=== PATIENT | male | born 1975 | race Caucasian/White ===

== ENCOUNTER 2024-01-28 14:36 | Emergency (ER) | payer MEDICAID, MEDICARE ==
[~2024-01-28] VITALS: Ht 182.9 cm; Wt 79.0 kg
[~2024-01-28 14:36] MED LIST: /THIA10TA; BENI20TA11; BUSP15TA; FOLI1TAB; HUMULIN703 SC; HYDROXYZINE; INSULANT; LISI20TA5; MAGN500T2; MAGNESIUM CHLORIDE; NICO7DIS4; NOVOLOG100 MG/ML; SERO1TAB3; ZOLO100T
[2024-01-28 14:37] VITALS: BP 168/70; TEMP 98.2; O2SAT 98
[2024-01-28] MEDS ORDERED: ADDE20CA3 PO (14:49)
[2024-01-28] MEDS ORDERED: CLON1TAB17 PO (14:50)
[2024-01-28] MEDS ORDERED: TRAZ-257 PO (14:51)
[2024-01-28] MEDS ORDERED: LANTINJ4 SC ×2 (15:32)
== END 2024-01-28 15:33 | disposition home or self-care (01) ==
LOC: M ED 14:36
DX: Z76.0 Encounter for issue of repeat prescription (principal); E11.9 Type 2 diabetes mellitus without complications; I10 Essential (primary) hypertension; Z79.4 Long term (current) use of insulin; Z79.899 Other long term (current) drug therapy; Z88.0 Allergy status to penicillin; Z91.018 Allergy to other foods

== ENCOUNTER 2025-06-12 15:38 | Emergency (ER) | payer SELFPAY ==
[~2025-06-12] VITALS: Ht 182.9 cm; Wt 70.0 kg
[~2025-06-12 15:38] MED LIST changes: +ADDE20CA3 PO; +CLON1TAB17 PO; +INSUH10VL SUBQ; +LANTINJ4 SC; +LANTINJ4 SUBQ; +TRAZ-257 PO
[2025-06-12 17:23] LABS: VENOUS BASE EXCESS 1.6 (-2.0-2.0); VENOUS HCO3 27.9 MMOL/L (23.0-27.0); VENOUS O2 SATURATION 58.1 % (60.0-80.0); VENOUS PARTIAL PRESSURE CO2 49.1 mmHg (38.0-50.0); VENOUS PARTIAL PRESSURE O2 28.4 mmHg (30.0-50.0); VENOUS PH 7.372 UNITS (7.330-7.430); VENOUS STANDARD HCO3 24.7 MMOL/L; VENOUS TOTAL CO2 29.4 MMOL/L (24.0-28.0)
[2025-06-12 17:28] LABS: BASO # 0.1 10^3/uL (0.0-0.2); BASO % 1.3 % (0.0-1.0); EOS # 0.2 10^3/uL (0.0-0.5); EOS % 2.6 % (0.0-3.0); KETONE, URINE AUTO RFX 2+ mg/dL (NEGATIVE); LEUKOCYTE ESTERASE UR AUTO RFX NEGATIVE (NEGATIVE); LYMPH # 2.4 10^3/uL (1.5-5.0); LYMPH % 30.6 % (24.0-44.0); MONO # 0.6 10^3/uL (0.0-0.8); MONO % 8.0 % (2.0-8.0); NEUTROPHILS # 4.4 10^3/uL (1.5-8.5); NEUTROPHILS % 57.2 % (36.0-66.0); NITRITE, URINE AUTO RFX NEGATIVE (NEGATIVE); PLATELET COUNT, AUTOMATED 200 10^3/uL (150-450); RBC, URINE AUTO RFX 1 /HPF (0-3); SQUAM EPITHELIAL CELL UR AURFX 0 /HPF (0-6); WBC, URINE AUTO RFX 1 /HPF (0-3)
[2025-06-12 17:55] LABS: ALT/SGPT 22 U/L (7.0-40); AST/SGOT 13 U/L (<34); CALCIUM LEVEL 9.8 MG/DL (8.5-10.1); CARBON DIOXIDE LEVEL 31 MMOL/L (20-31); CHLORIDE LEVEL 96 MMOL/L (98-107); CREATININE FOR GFR 0.55 MG/DL (0.70-1.30); GLOMERULAR FILTRATION RATE > 90.0 (>60); POTASSIUM SERUM 4.5 MMOL/L (3.5-5.1); SODIUM LEVEL 137 MMOL/L (136-145)
[2025-06-12 18:00] LABS: ESTIMATED AVERAGE GLUCOSE 246.0 MG/DL (60-110)
[2025-06-12] MEDS: NS (Normal Saline) 0.9% 1,000 ML IV ONE (18:57)
[2025-06-12 18:59] LABS: OSMOLALITY SERUM 296 MOSM/KG (275-295)
[2025-06-12 19:10] LABS: ACETONE/KETONE 2.45 MMOL/L (0.02-0.27)
[2025-06-12] MEDS ORDERED: INSUH10VL SUBQ (20:17)
[2025-06-12 20:22] VITALS: BP 138/81; TEMP 97.8; O2SAT 97
== END 2025-06-12 20:28 | disposition home or self-care (01) ==
LOC: M ED 15:38
DX: E11.65 Type 2 diabetes mellitus with hyperglycemia (principal); R11.10 Vomiting, unspecified; Z76.0 Encounter for issue of repeat prescription; K21.9 Gastro-esophageal reflux disease without esophagitis; E78.5 Hyperlipidemia, unspecified; I10 Essential (primary) hypertension; F41.9 Anxiety disorder, unspecified; F32.A Depression, unspecified; F12.10 Cannabis abuse, uncomplicated; Z88.0 Allergy status to penicillin; Z90.89 Acquired absence of other organs; Z79.4 Long term (current) use of insulin

== ENCOUNTER 2025-07-19 05:59 | Emergency (ER) | payer SELFPAY ==
[~2025-07-19] VITALS: Ht 182.9 cm; Wt 70.5 kg
[2025-07-19 07:59] VITALS: BP 130/80; TEMP 97.3; O2SAT 97
[2025-07-19] MEDS ORDERED: NOVOINJ3 SC (08:04)
[2025-07-19] MEDS ORDERED: LANTINJ4 SC (08:04)
== END 2025-07-19 08:28 | disposition home or self-care (01) ==
LOC: M ED 05:59
DX: E10.9 Type 1 diabetes mellitus without complications (principal); Z76.0 Encounter for issue of repeat prescription; Z88.0 Allergy status to penicillin; Z79.899 Other long term (current) drug therapy

== ENCOUNTER → 2025-08-28 | Outpatient (REF) | payer SELFPAY ==
[~2025-08-28] MED LIST changes: +AMPH1CAP16 PO; +ATOR1TAB19 PO; +BUPR150T12 PO; +CETI-24 PO; +CLON1TAB8 PO; +NOVOINJ3 SC; +SUMA50TA2 PO; +TRAZ-189 PO
[2025-08-28 18:31] LABS: BASO # 0.1 10^3/uL (0.0-0.2); BASO % 1.2 % (0.0-1.0); EOS # 0.1 10^3/uL (0.0-0.5); EOS % 1.4 % (0.0-3.0); LYMPH # 3.1 10^3/uL (1.5-5.0); LYMPH % 33.3 % (24.0-44.0); MONO # 0.6 10^3/uL (0.0-0.8); MONO % 6.7 % (2.0-8.0); NEUTROPHILS # 5.3 10^3/uL (1.5-8.5); NEUTROPHILS % 57.1 % (36.0-66.0); PLATELET COUNT, AUTOMATED 266 10^3/uL (150-450)
[2025-08-28 18:36] LABS: ALT/SGPT 18 U/L (7.0-40); AST/SGOT 15 U/L (<34); CALCIUM LEVEL 9.7 MG/DL (8.5-10.1); CARBON DIOXIDE LEVEL 31 MMOL/L (20-31); CHLORIDE LEVEL 103 MMOL/L (98-107); CHOLESTEROL LEVEL 154 MG/DL (<200); CHOLESTEROL RISK RATIO 2.52 (<5); CREATININE FOR GFR 0.63 MG/DL (0.70-1.30); GLOMERULAR FILTRATION RATE > 90.0 (>60); LDL CHOLESTEROL 84.1 MG/DL (<100); NON-HDL-C 93.1 MG/DL; POTASSIUM SERUM 4.8 MMOL/L (3.5-5.1); SODIUM LEVEL 142 MMOL/L (136-145); TRIGLYCERIDES LEVEL 45 MG/DL (<150)
[2025-08-28 18:52] LABS: ESTIMATED AVERAGE GLUCOSE 200.0 MG/DL (60-110)
== END ==
LOC: M LAB REF 16:30
PROVIDERS: ATTEND Nurse Practitioner Family
DX: R53.83 Other fatigue (principal); Z13.6 Encounter for screening for cardiovascular disorders; E10.9 Type 1 diabetes mellitus without complications

== ENCOUNTER 2025-08-30 09:39 | Emergency (ER) | payer SELFPAY ==
[~2025-08-30] VITALS: Ht 172.7 cm; Wt 89.4 kg
[~2025-08-30 09:39] MED LIST changes: -AMPH1CAP16 PO; -ATOR1TAB19 PO; -BUPR150T12 PO; -CETI-24 PO; -CLON1TAB8 PO; -SUMA50TA2 PO; -TRAZ-189 PO
[2025-08-30] MEDS: ASPIRIN 81 MG CHEWABLE TABLET PO ONE (11:00)
[2025-08-30 11:35] LABS: BASO # 0.1 10^3/uL (0.0-0.2); BASO % 1.4 % (0.0-1.0); EOS # 0.2 10^3/uL (0.0-0.5); EOS % 2.0 % (0.0-3.0); LYMPH # 2.0 10^3/uL (1.5-5.0); LYMPH % 26.4 % (24.0-44.0); MONO # 0.5 10^3/uL (0.0-0.8); MONO % 6.9 % (2.0-8.0); NEUTROPHILS # 4.8 10^3/uL (1.5-8.5); NEUTROPHILS % 63.0 % (36.0-66.0); PLATELET COUNT, AUTOMATED 242 10^3/uL (150-450)
[2025-08-30] MEDS ORDERED: LANTINJ4 SC ×2 (11:38)
[2025-08-30] MEDS ORDERED: NOVOINJ3 SC (11:38)
[2025-08-30] MEDS ORDERED: SUMA50TA2 PO (11:47)
[2025-08-30] MEDS ORDERED: TRAZ-189 PO (11:47)
[2025-08-30] MEDS ORDERED: AMPH1CAP16 PO (11:47)
[2025-08-30] MEDS ORDERED: CETI-24 PO (11:47)
[2025-08-30] MEDS ORDERED: CLON1TAB8 PO (11:47)
[2025-08-30] MEDS ORDERED: ATOR1TAB19 PO (11:47)
[2025-08-30] MEDS ORDERED: BUPR150T12 PO (11:47)
[2025-08-30] MEDS ORDERED: HOME MED LIST COMPLETE! XX SCH (11:50)
[2025-08-30 11:58] LABS: CALCIUM LEVEL 9.0 MG/DL (8.5-10.1); CARBON DIOXIDE LEVEL 29 MMOL/L (20-31); CHLORIDE LEVEL 99 MMOL/L (98-107); CK-MB VALUE MASS < 1.0 NG/ML (<3.6); CREATININE FOR GFR 0.58 MG/DL (0.70-1.30); GLOMERULAR FILTRATION RATE > 90.0 (>60); POTASSIUM SERUM 4.6 MMOL/L (3.5-5.1); SODIUM LEVEL 137 MMOL/L (136-145)
[2025-08-30 12:00] LABS: CPK CREATINE PHOSPHOKINASE 94 U/L (46-171)
[2025-08-30 12:15] VITALS: BP 146/73; TEMP 97.4; O2SAT 99
== END 2025-08-30 12:36 | disposition home or self-care (01) ==
LOC: M ED 09:39
DX: F41.9 Anxiety disorder, unspecified (principal); E11.65 Type 2 diabetes mellitus with hyperglycemia; R00.0 Tachycardia, unspecified; Z90.49 Acquired absence of other specified parts of digestive tract; Z88.0 Allergy status to penicillin; Z79.02 Long term (current) use of antithrombotics/antiplatelets; Z79.899 Other long term (current) drug therapy; Z79.4 Long term (current) use of insulin

== ENCOUNTER 2025-10-04 16:17 | Emergency (ER) | payer SELFPAY ==
[~2025-10-04] VITALS: Ht 182.9 cm; Wt 68.5 kg
[~2025-10-04 16:17] MED LIST changes: +AMPH1CAP16 PO; +ATOR1TAB19 PO; +BUPR150T12 PO; +CETI-24 PO; +CLON1TAB8 PO; +SUMA50TA2 PO; +TRAZ-189 PO
[2025-10-04 16:19] VITALS: TEMP 98
[2025-10-04 17:38] LABS: BASO # 0.2 10^3/uL (0.0-0.2); BASO % 0.9 % (0.0-1.0); EOS # 0.1 10^3/uL (0.0-0.5); EOS % 0.4 % (0.0-3.0); LYMPH # 2.0 10^3/uL (1.5-5.0); LYMPH % 12.5 % (24.0-44.0); MONO # 1.2 10^3/uL (0.0-0.8); MONO % 7.6 % (2.0-8.0); NEUTROPHILS # 12.5 10^3/uL (1.5-8.5); NEUTROPHILS % 78.1 % (36.0-66.0); PLATELET COUNT, AUTOMATED 254 10^3/uL (150-450)
[2025-10-04 17:39] LABS: VENOUS BASE EXCESS -8.8 (-2.0-2.0); VENOUS HCO3 17.7 MMOL/L (23.0-27.0); VENOUS O2 SATURATION 98.3 % (60.0-80.0); VENOUS PARTIAL PRESSURE CO2 40.2 mmHg (38.0-50.0); VENOUS PARTIAL PRESSURE O2 122.0 mmHg (30.0-50.0); VENOUS PH 7.262 UNITS (7.330-7.430); VENOUS STANDARD HCO3 17.7 MMOL/L; VENOUS TOTAL CO2 19.0 MMOL/L (24.0-28.0)
[2025-10-04 18:03] LABS: OSMOLALITY SERUM 304 MOSM/KG (275-295)
[2025-10-04 18:05] LABS: ALT/SGPT 20 U/L (7.0-40); AST/SGOT 17 U/L (<34)
[2025-10-04 18:08] LABS: ACETONE/KETONE > 4.50 MMOL/L (0.02-0.27)
[2025-10-04 18:56] LABS: ESTIMATED AVERAGE GLUCOSE 232.0 MG/DL (60-110)
[2025-10-04 19:02] LABS: KETONE, URINE AUTO RFX 2+ mg/dL (NEGATIVE); LEUKOCYTE ESTERASE UR AUTO RFX NEGATIVE (NEGATIVE); NITRITE, URINE AUTO RFX NEGATIVE (NEGATIVE); RBC, URINE AUTO RFX 0 /HPF (0-3); SQUAM EPITHELIAL CELL UR AURFX 0 /HPF (0-6); WBC, URINE AUTO RFX 0 /HPF (0-3)
[2025-10-04] MEDS: NS (Normal Saline) 0.9% 1,000 ML IV ONE (20:01)
[2025-10-04 20:21] LABS: CALCIUM LEVEL 9.3 MG/DL (8.5-10.1); CARBON DIOXIDE LEVEL 17 MMOL/L (20-31); CHLORIDE LEVEL 96 MMOL/L (98-107); CREATININE FOR GFR 0.55 MG/DL (0.70-1.30); GLOMERULAR FILTRATION RATE > 90.0 (>60); POTASSIUM SERUM 5.0 MMOL/L (3.5-5.1); SODIUM LEVEL 136 MMOL/L (136-145)
[2025-10-04 20:59] LABS: AMPHETAMINES LEVEL URINE NEGATIVE (NEGATIVE); BARBITURATES URINE NEGATIVE (NEGATIVE); BENZODIAZEPINES URINE NEGATIVE (NEGATIVE); COCAINE METABOLITE URINE NEGATIVE (NEGATIVE); METHADONE URINE NEGATIVE (NEGATIVE); OPIATES URINE NEGATIVE (NEGATIVE); PHENCYCLIDINE URINE NEGATIVE (NEGATIVE)
[2025-10-04 21:00] VITALS: BP 142/69
[2025-10-04 21:01] LABS: CANNABINOIDS URINE POSITIVE (NEGATIVE)
[2025-10-04 21:18] VITALS: O2SAT 100
[2025-10-05] MEDS ORDERED: INSU100V6 SQ (13:46)
== END 2025-10-04 22:12 | disposition left against medical advice (07) ==
LOC: M ED 17:20
DX: Z53.21 Procedure and treatment not carried out due to patient leaving prior to being seen by health care provider (principal)

== ENCOUNTER 2025-10-05 10:59 | Inpatient (IN) | payer MEDICARE, SELFPAY ==
[~2025-10-05] VITALS: Ht 182.9 cm; Wt 68.1 kg
[2025-10-05] VITALS (7 sets, daily range): BP systolic 119–152; BP diastolic 64–74; TEMP 97.9; O2SAT 96–99
[2025-10-05 11:44] LABS: VENOUS BASE EXCESS -12.5 (-2.0-2.0); VENOUS HCO3 12.8 MMOL/L (23.0-27.0); VENOUS O2 SATURATION 98.7 % (60.0-80.0); VENOUS PARTIAL PRESSURE CO2 28.7 mmHg (38.0-50.0); VENOUS PARTIAL PRESSURE O2 149.0 mmHg (30.0-50.0); VENOUS PH 7.266 UNITS (7.330-7.430); VENOUS STANDARD HCO3 15.1 MMOL/L; VENOUS TOTAL CO2 13.6 MMOL/L (24.0-28.0)
[2025-10-05] MEDS: NS (Normal Saline) 0.9% 1,000 ML IV ONE ×2 (11:50→13:29)
[2025-10-05 11:51] LABS: BASO # 0.2 10^3/uL (0.0-0.2); BASO % 1.0 % (0.0-1.0); EOS # 0.2 10^3/uL (0.0-0.5); EOS % 1.1 % (0.0-3.0); LYMPH # 2.9 10^3/uL (1.5-5.0); LYMPH % 20.1 % (24.0-44.0); MONO # 1.2 10^3/uL (0.0-0.8); MONO % 8.5 % (2.0-8.0); NEUTROPHILS # 10.0 10^3/uL (1.5-8.5); NEUTROPHILS % 68.8 % (36.0-66.0); PLATELET COUNT, AUTOMATED 282 10^3/uL (150-450)
[2025-10-05 11:52] LABS: KETONE, URINE AUTO RFX 2+ mg/dL (NEGATIVE); LEUKOCYTE ESTERASE UR AUTO RFX NEGATIVE (NEGATIVE); NITRITE, URINE AUTO RFX NEGATIVE (NEGATIVE); RBC, URINE AUTO RFX 0 /HPF (0-3); SQUAM EPITHELIAL CELL UR AURFX 0 /HPF (0-6); WBC, URINE AUTO RFX 0 /HPF (0-3)
[2025-10-05 12:10] LABS: ALT/SGPT 20 U/L (7.0-40); AST/SGOT 18 U/L (<34); CALCIUM LEVEL 9.3 MG/DL (8.5-10.1); CARBON DIOXIDE LEVEL 15 MMOL/L (20-31); CHLORIDE LEVEL 96 MMOL/L (98-107); CREATININE FOR GFR 0.55 MG/DL (0.70-1.30); GLOMERULAR FILTRATION RATE > 90.0 (>60); MAGNESIUM LEVEL 1.6 MG/DL (1.8-2.4); POTASSIUM SERUM 4.6 MMOL/L (3.5-5.1); SODIUM LEVEL 131 MMOL/L (136-145)
[2025-10-05 12:11] LABS: OSMOLALITY SERUM 301 MOSM/KG (275-295)
[2025-10-05 12:18] LABS: ACETONE/KETONE > 4.50 MMOL/L (0.02-0.27)
[2025-10-05] MEDS ORDERED: ISOVUE-370 76% 100 ML VIAL As Ordered ONE (12:36)
[2025-10-05 13:13] LABS: ESTIMATED AVERAGE GLUCOSE 235.0 MG/DL (60-110)
[2025-10-05] MEDS: MAG SULF 1GM/100ML (MAG RUN) 1 GM in IV 1 EA IV ONE (13:30)
[2025-10-05] MEDS: INSULIN REGULAR IN 0.9 % NACL 100 UNIT in IV 1 EA IV SCH ×2 (13:35→15:37)
[2025-10-05] MEDS ORDERED: INSU100V6 SQ (13:46)
[2025-10-05] MEDS ORDERED: HOME MED LIST COMPLETE! XX SCH (13:50)
[2025-10-05] MEDS ORDERED: INSULIN IV RATE CHANGE DOCUMENTATION ML/HR XX SCH (14:50)
[2025-10-05] MEDS: SUMAtriptan SUCCINATE 50MG TABLET PO ONE (15:18)
[2025-10-05] MEDS: KCL 20MEQ IN D5/0.45NS 1000ML 1,000 ML IV SCH (15:36)
[2025-10-05 17:05] LABS: CALCIUM LEVEL 8.0 MG/DL (8.5-10.1); CARBON DIOXIDE LEVEL 17 MMOL/L (20-31); CHLORIDE LEVEL 104 MMOL/L (98-107); CREATININE FOR GFR 0.53 MG/DL (0.70-1.30); GLOMERULAR FILTRATION RATE > 90.0 (>60); POTASSIUM SERUM 4.1 MMOL/L (3.5-5.1); SODIUM LEVEL 138 MMOL/L (136-145)
[2025-10-05] MEDS ORDERED: SUMAtriptan SUCCINATE 50MG TABLET PO PRN (17:05)
[2025-10-05 19:19] LABS: CALCIUM LEVEL 8.0 MG/DL (8.5-10.1); CARBON DIOXIDE LEVEL 23 MMOL/L (20-31); CHLORIDE LEVEL 107 MMOL/L (98-107); CREATININE FOR GFR 0.49 MG/DL (0.70-1.30); GLOMERULAR FILTRATION RATE > 90.0 (>60); POTASSIUM SERUM 4.1 MMOL/L (3.5-5.1); SODIUM LEVEL 138 MMOL/L (136-145)
[2025-10-05] MEDS: INSULIN IV RATE CHANGE DOCUMENTATION ML/HR XX SCH (20:01)
[2025-10-05] MEDS: HEPARIN SOD 5000 UNITS/ML 1 ML VIAL/SYRINGE SC SCH (22:03)
[2025-10-05 23:58] LABS: CALCIUM LEVEL 8.0 MG/DL (8.5-10.1); CARBON DIOXIDE LEVEL 22 MMOL/L (20-31); CHLORIDE LEVEL 108 MMOL/L (98-107); CREATININE FOR GFR 0.42 MG/DL (0.70-1.30); GLOMERULAR FILTRATION RATE > 90.0 (>60); POTASSIUM SERUM 4.1 MMOL/L (3.5-5.1); SODIUM LEVEL 139 MMOL/L (136-145)
[2025-10-06] VITALS: BP 135/78; TEMP 98; O2SAT 97
[2025-10-06 03:08] LABS: CALCIUM LEVEL 8.0 MG/DL (8.5-10.1); CARBON DIOXIDE LEVEL 22 MMOL/L (20-31); CHLORIDE LEVEL 108 MMOL/L (98-107); CREATININE FOR GFR 0.42 MG/DL (0.70-1.30); GLOMERULAR FILTRATION RATE > 90.0 (>60); POTASSIUM SERUM 3.8 MMOL/L (3.5-5.1); SODIUM LEVEL 139 MMOL/L (136-145)
[2025-10-06] MEDS: LanTUS (INSULIN GLARGINE INJ) 1 UNITS/0.01 ML SC ONE ×2 (03:50→09:22)
[2025-10-06 04:00] VITALS: BP 122/76; TEMP 98.2; O2SAT 98
[2025-10-06 05:34] LABS: CALCIUM LEVEL 7.9 MG/DL (8.5-10.1); CARBON DIOXIDE LEVEL 24 MMOL/L (20-31); CHLORIDE LEVEL 109 MMOL/L (98-107); CREATININE FOR GFR 0.43 MG/DL (0.70-1.30); GLOMERULAR FILTRATION RATE > 90.0 (>60); MAGNESIUM LEVEL 1.6 MG/DL (1.8-2.4); PHOSPHORUS LEVEL 1.7 MG/DL (2.5-4.9); POTASSIUM SERUM 3.6 MMOL/L (3.5-5.1); SODIUM LEVEL 141 MMOL/L (136-145)
[2025-10-06 05:38] LABS: BASO # 0.1 10^3/uL (0.0-0.2); BASO % 1.3 % (0.0-1.0); EOS # 0.2 10^3/uL (0.0-0.5); EOS % 2.7 % (0.0-3.0); LYMPH # 3.8 10^3/uL (1.5-5.0); LYMPH % 42.5 % (24.0-44.0); MONO # 0.7 10^3/uL (0.0-0.8); MONO % 7.9 % (2.0-8.0); NEUTROPHILS # 4.0 10^3/uL (1.5-8.5); NEUTROPHILS % 45.4 % (36.0-66.0); PLATELET COUNT, AUTOMATED 225 10^3/uL (150-450)
[2025-10-06 08:00] VITALS: BP 137/84; TEMP 98.7; O2SAT 98
[2025-10-06] MEDS: ATORVASTATIN 10 MG TAB PO SCH (09:23)
[2025-10-06] MEDS: INSULIN LISPRO (NovoLOG) PER UNIT SC SCH (09:23)
[2025-10-06] MEDS: MAG SULF 1GM/100ML (MAG RUN) 1 GM in IV 1 EA IV SCH (09:23)
[2025-10-06] MEDS: PANTOPRAZOLE 40MG VIAL IV SCH (09:23)
[2025-10-06] MEDS: NS IV ONE (10:15)
[2025-10-06] MEDS: POTASSIUM PHOSPHATE IV ONE (10:15)
[2025-10-06] MEDS ORDERED: INSU1MIS20 SC (11:29)
[2025-10-06] MEDS ORDERED: GLUC1TES2 XX (11:29)
[2025-10-06] MEDS ORDERED: INSULADS SUBQ (11:29)
[2025-10-06 11:36] LABS: CALCIUM LEVEL 8.1 MG/DL (8.5-10.1); CARBON DIOXIDE LEVEL 25 MMOL/L (20-31); CHLORIDE LEVEL 103 MMOL/L (98-107); CREATININE FOR GFR 0.49 MG/DL (0.70-1.30); GLOMERULAR FILTRATION RATE > 90.0 (>60); POTASSIUM SERUM 3.9 MMOL/L (3.5-5.1); SODIUM LEVEL 137 MMOL/L (136-145)
[2025-10-06] MEDS ORDERED: LanTUS (INSULIN GLARGINE INJ) 1 UNITS/0.01 ML SC SCH (21:00)
[2025-10-06] MEDS ORDERED: INSULIN LISPRO (NovoLOG) PER UNIT SC SCH (21:00)
== END 2025-10-06 14:06 | disposition home or self-care (01) | DRG 639 ==
LOC: M ED 10:59 → M ED INP 14:47 → M ICU 16:31
PROVIDERS: ADMIT Internal Medicine; ATTEND Internal Medicine
DX: E11.10 Type 2 diabetes mellitus with ketoacidosis without coma (principal); F32.A Depression, unspecified; E78.5 Hyperlipidemia, unspecified; Z79.4 Long term (current) use of insulin; Z91.148 Patient's other noncompliance with medication regimen for other reason; Z79.899 Other long term (current) drug therapy; Z88.0 Allergy status to penicillin; G43.909 Migraine, unspecified, not intractable, without status migrainosus